=== PATIENT | female | born 1950 | race African-American/Black ===

== ENCOUNTER 2016-11-23 23:13 | Inpatient (IN) ==
[2016-11-23] MEDS ORDERED: Ondansetron 4 MG/2 ML VIAL IVP ONE (23:24)
[2016-11-23 23:46] LABS: Basophils # 0.1 K/mcL (0.0-0.2); Basophils % 0.3 %; Eosinophils % 0.1 %; Hematocrit 42.8 % (35.3-44.9); Immature Granulocytes % 0.5 % (0-4); Lymphocytes # 2.5 K/mcL (0.6-4.6); Lymphocytes % 16.5 %; Mean Corpuscular HGB Conc 32.7 g/dL (31.6-35.5); Mean Corpuscular Hemoglobin 24.9 pg (28.0-33.3); Mean Platelet Volume 9.6 fL (9.4-12.4); Monocytes # 0.9 K/mcL (0.0-1.3); Monocytes % 5.8 %; Neutrophils # 11.4 K/mcL (1.6-8.9); Platelet Count 460 K/mcL (140-400); Red Blood Count 5.63 M/mcL (3.82-4.97); Red Cell Distribution Width 19.4 % (11.5-14.5); Segmented Neutrophils % 76.8 %
[2016-11-23] MEDS ORDERED: *HR* Morphine 2 MG/ML SYRINGE IVP ONE (23:53)
[2016-11-23] MEDS ORDERED: 0.9 % Sodium Chloride 1,000 ML IVC ONE (23:53)
[2016-11-24 00:18] LABS: Albumin 3.2 g/dL (3.5-5.0); Albumin/Globulin Ratio 0.5 (1.1-2.2); Alkaline Phosphatase 84 Units/L (38-126); Aspartate Amino Transferase 15 Units/L (5-34); BUN/Creatinine Ratio 11 (6-26); Bilirubin,Direct 0.2 mg/dL (0.0-0.5); Bilirubin,Indirect 0.3 mg/dL (0.0-1.2); Bilirubin,Total 0.5 mg/dL (0.2-1.2); Blood Urea Nitrogen 27 mg/dL (7-20); Calcium 10.1 mg/dL (8.6-10.8); Carbon Dioxide 21 mEq/L (19-29); Chloride 105 mEq/L (98-109); Globulin 7.1 g/dL (2.4-3.5); Glucose 121 mg/dL (70-99); Lipase 133 Units/L (8-78); Osmolality,Calculated 294 (280-300); Potassium 4.3 mEq/L (3.5-4.5); Sodium 139 mEq/L (136-145); Total Protein 10.3 g/dL (6.0-8.3); eGFR For African Americans 24 (> 60); eGFR For Non-African Americans 19 (> 60)
[2016-11-24 00:19] LABS: Alanine Aminotransferase < 6 Units/L (0-55)
--- NOTE | 2016-11-24 00:24 | Emergency Department Note ---
Disposition Clinical Impression: Elevated lipase, Nausea vomiting and diarrhea Abdominal pain Qualifiers: Abdominal location: generalized Qualified Code(s): R10.84 - Generalized abdominal pain Disposition: Admitted As Inpatient Condition: Good Time of Disposition: 01:54 Abdominal Pain HPI - General Chief Complaint: ED Abdominal Pain Stated Complaint: n/v and abd pain Time Seen by Provider: 11/23/16 23:24 Source: patient Nursing Notes Reviewed: Yes Vital Signs Reviewed: Yes - History of Present Illness Pt Subjective Complaint: abdominal pain Onset (ago): day(s) (3) Consistency: constant Location: diffuse Pain Scale: 6 Radiation: none Migration to: no migration Improves with: nothing Worsens with: nothing Associated symptoms: Reports: nausea, vomiting, diarrhea Treatments prior to arrival: none - Related Data Allergies Allergy/AdvReac Type Severity Reaction Status Date / Time white fish Allergy Rash Uncoded 11/23/16 23:21 All systems ED: reviewed and negative except as stated. Constitutional: Denies: fever, chills Eyes: Denies: eye discharge ENT ED: Denies: throat pain Cardiovascular: Denies: palpitations Respiratory: Denies: dyspnea Gastrointestinal: Reports: as per HPI Genitourinary: Denies: dysuria Musculoskeletal: Denies: back pain, neck pain Integumentary: Denies: rash Neurological: Denies: headache, weakness, numbness, paresthesias Psychiatric: Denies: anxiety Endocrine: Denies: fatigue Hematological/Lymphatic: Denies: easy bleeding Allergic/Immunologic: Denies: facial swelling Abdominal Pain PMH - Past Medical History Medical history: Reports: diabetes, hypertension Female Surgical History: Reports: no surgical history Psychiatric history: Reports: depression - Social History Smoking status: Current some day smoker Alcohol use: Reports: occasionally Drug use: Reports: none Physical Exam - General Limitations: no limitations General appearance: alert, in no apparent distress - Head Head exam: normocephalic - Eye Eye exam: Present: EOMI. Absent: conjunctival injection - ENT ENT exam: mucous membranes moist - Neck Neck exam: Present: full ROM - Chest Chest inspection: Present: symmetric chest wall rise - Respiratory Respiratory exam: Present: normal lung sounds bilaterally. Absent: respiratory distress - Cardiovascular Cardiovascular exam: Present: regular rate, normal rhythm - Abdominal Exam Abdominal exam: Present: soft, tenderness Abdominal tenderness: Present: diffuse - Extremities Exam Extremities exam: Present: normal inspection, full ROM, normal capillary refill - Back Exam Back exam: Present: full ROM - Neurological Exam Neurological exam: Present: alert - Psychiatric Psychiatric exam: Present: normal affect, normal mood - Skin Skin exam: Present: warm, dry, intact, normal color. Absent: rash, cyanosis, diaphoresis Course Course Narrative: Patient presents with three-day history of abdominal pain nausea vomiting and diarrhea. She mentioned she is from out of town and has been visiting family. She denies any fever, chest pain, shortness of breath. She describes her pain as diffuse. She has noticed blood in her vomit, denies any bloody stools. Analgesics ordered. Work up initiated. - Reevaluation(s) Reevaluation #1: Patient has elevated white blood cell count, lipase, and abdominal pain. Discussed patient with Dr. Noriega who agreed for CT. Time: 01:50 Reevaluation #2: Patient had some improvement of her pain after Dilaudid. Patient has kidney disease and elevated lipase however we have no measurement of her baseline since she is from out of town. She also has an elevated white blood cell count and she reports vomiting up blood. Discussed with Dr. Noriega who also had face time with palpation. Will recommend admission to hospitalist. Time: 01:54 Reevaluation #3: Patient discussed with and accepted by hospitalist, Dr. Simon. Time: 02:00 Vital Signs Temperature 97.9 F 11/23/16 23:16 Pulse Rate 78 11/23/16 23:16 Respiratory Rate 20 11/23/16 23:16 Blood Pressure 171/105 11/23/16 23:16 O2 Sat by Pulse Oximetry 97 11/23/16 23:16 Temperature 97.9 F 11/23/16 23:16 Pulse Rate 72 11/24/16 01:26 Respiratory Rate 16 11/24/16 02:27 Blood Pressure 166/85 11/24/16 02:27 O2 Sat by Pulse Oximetry 96 11/24/16 01:26 Oxygen Delivery Oxygen Delivery Room Air Abdominal Pain - MDM Narrative Medical decision making narrative: Abdomen/Pelvis CT 11/24/16 00:31 IMPRESSION: 1. Cholelithiasis without scan evidence for acute cholecystitis. 2. Left renal atrophy. Peripheral increased attenuation could represent a very small perinephric hematoma or prior episode of renal cortical necrosis. If the patient has prior outside studies comparison would be beneficial. D/ / Charlie Gutierrez MD / Charlie Gutierrez MD Interpreting Provider: Charlie Gutierrez MD Lab Results 11/23/16 11/23/16 11/23/16 Range/Units 23:25 23:25 23:25 WBC 14.9 H (4.3-11.1) K/mcL RBC 5.63 H (3.82-4.97) M/mcL Hgb 14.0 (11.5-15.4) g/dL Hct 42.8 (35.3-44.9) % MCV 76.0 L (83.0-100.0) fL MCH 24.9 L (28.0-33.3) pg MCHC 32.7 (31.6-35.5) g/dL RDW 19.4 H (11.5-14.5) % Plt Count 460 H (140-400) K/mcL MPV 9.6 (9.4-12.4) fL Immature Gran % 0.5 (0-4) % Seg Neutrophils % 76.8 % Lymphocytes % 16.5 % Monocytes % 5.8 % Eosinophils % 0.1 % Basophils % 0.3 % Neutrophils # 11.4 H (1.6-8.9) K/mcL Lymphocytes # 2.5 (0.6-4.6) K/mcL Monocytes # 0.9 (0.0-1.3) K/mcL Eosinophils # 0.0 (0.0-0.6) K/mcL Basophils # 0.1 (0.0-0.2) K/mcL Sodium 139 (136-145) mEq/L Potassium 4.3 (3.5-4.5) mEq/L Chloride 105 (98-109) mEq/L Carbon Dioxide 21 (19-29) mEq/L BUN 27 H (7-20) mg/dL Creatinine 2.49 H (0.57-1.11) mg/dL Est GFR ( Amer) 24 L (> 60) Est GFR (Non-Af Amer) 19 L (> 60) BUN/Creatinine Ratio 11 (6-26) Glucose 121 H (70-99) mg/dL Calculated Osmolality 294 (280-300) Lactic Acid (0.5-2.2) mmol/L Calcium 10.1 (8.6-10.8) mg/dL Total Bilirubin 0.5 (0.2-1.2) mg/dL Direct Bilirubin 0.2 (0.0-0.5) mg/dL Indirect Bilirubin 0.3 (0.0-1.2) mg/dL AST 15 (5-34) Units/L ALT < 6 (0-55) Units/L Alkaline Phosphatase 84 (38-126) Units/L Troponin I 0.01 (0-0.03) ng/mL Serum Total Protein 10.3 H (6.0-8.3) g/dL Albumin 3.2 L (3.5-5.0) g/dL Globulin 7.1 H (2.4-3.5) g/dL Albumin/Globulin Ratio 0.5 L (1.1-2.2) Lipase 133 H (8-78) Units/L /15/17 Range/Units 01:16 WBC (4.3-11.1) K/mcL RBC (3.82-4.97) M/mcL Hgb (11.5-15.4) g/dL Hct (35.3-44.9) % MCV (83.0-100.0) fL MCH (28.0-33.3) pg MCHC (31.6-35.5) g/dL RDW (11.5-14.5) % Plt Count (140-400) K/mcL MPV (9.4-12.4) fL Immature Gran % (0-4) % Seg Neutrophils % % Lymphocytes % % Monocytes % % Eosinophils % % Basophils % % Neutrophils # (1.6-8.9) K/mcL Lymphocytes # (0.6-4.6) K/mcL Monocytes # (0.0-1.3) K/mcL Eosinophils # (0.0-0.6) K/mcL Basophils # (0.0-0.2) K/mcL Sodium (136-145) mEq/L Potassium (3.5-4.5) mEq/L Chloride (98-109) mEq/L Carbon Dioxide (19-29) mEq/L BUN (7-20) mg/dL Creatinine (0.57-1.11) mg/dL Est GFR ( Amer) (> 60) Est GFR (Non-Af Amer) (> 60) BUN/Creatinine Ratio (6-26) Glucose (70-99) mg/dL Calculated Osmolality (280-300) Lactic Acid 0.7 (0.5-2.2) mmol/L Calcium (8.6-10.8) mg/dL Total Bilirubin (0.2-1.2) mg/dL Direct Bilirubin (0.0-0.5) mg/dL Indirect Bilirubin (0.0-1.2) mg/dL AST (5-34) Units/L ALT (0-55) Units/L Alkaline Phosphatase (38-126) Units/L Troponin I (0-0.03) ng/mL Serum Total Protein (6.0-8.3) g/dL Albumin (3.5-5.0) g/dL Globulin (2.4-3.5) g/dL Albumin/Globulin Ratio (1.1-2.2) Lipase (8-78) Units/L - Lab Data Lab results reviewed: Yes I reviewed the patient's lab results. Result diagrams: 11/23/16 23:25 11/23/16 23:25 Lab Results 11/23/16 11/23/16 11/23/16 Range/Units 23:25 23:25 23:25 WBC 14.9 H (4.3-11.1) K/mcL RBC 5.63 H (3.82-4.97) M/mcL Hgb 14.0 (11.5-15.4) g/dL Hct 42.8 (35.3-44.9) % MCV 76.0 L (83.0-100.0) fL MCH 24.9 L (28.0-33.3) pg MCHC 32.7 (31.6-35.5) g/dL RDW 19.4 H (11.5-14.5) % Plt Count 460 H (140-400) K/mcL MPV 9.6 (9.4-12.4) fL Immature Gran % 0.5 (0-4) % Seg Neutrophils % 76.8 % Lymphocytes % 16.5 % Monocytes % 5.8 % Eosinophils % 0.1 % Basophils % 0.3 % Neutrophils # 11.4 H (1.6-8.9) K/mcL Lymphocytes # 2.5 (0.6-4.6) K/mcL Monocytes # 0.9 (0.0-1.3) K/mcL Eosinophils # 0.0 (0.0-0.6) K/mcL Basophils # 0.1 (0.0-0.2) K/mcL Sodium 139 (136-145) mEq/L Potassium 4.3 (3.5-4.5) mEq/L Chloride 105 (98-109) mEq/L Carbon Dioxide 21 (19-29) mEq/L BUN 27 H (7-20) mg/dL Creatinine 2.49 H (0.57-1.11) mg/dL Est GFR ( Amer) 24 L (> 60) Est GFR (Non-Af Amer) 19 L (> 60) BUN/Creatinine Ratio 11 (6-26) Glucose 121 H (70-99) mg/dL Calculated Osmolality 294 (280-300) Lactic Acid (0.5-2.2) mmol/L Calcium 10.1 (8.6-10.8) mg/dL Total Bilirubin 0.5 (0.2-1.2) mg/dL Direct Bilirubin 0.2 (0.0-0.5) mg/dL Indirect Bilirubin 0.3 (0.0-1.2) mg/dL AST 15 (5-34) Units/L ALT < 6 (0-55) Units/L Alkaline Phosphatase 84 (38-126) Units/L Troponin I 0.01 (0-0.03) ng/mL Serum Total Protein 10.3 H (6.0-8.3) g/dL Albumin 3.2 L (3.5-5.0) g/dL Globulin 7.1 H (2.4-3.5) g/dL Albumin/Globulin Ratio 0.5 L (1.1-2.2) Lipase 133 H (8-78) Units/L Urine Color (Yellow) Urine Clarity (Clear) Urine pH (5.0-8.0) pH Units Ur Specific [place]oster (1.010-1.025) Urine Protein (Neg-Trace) mg/dL Urine Glucose (UA) (Normal) mg/dL Urine Ketones (Negative) mg/dL Urine Blood (Negative) Urine Nitrite (Negative) Urine Bilirubin (Negative) Urine Urobilinogen (Normal) mg/dL Ur Leukocyte Esterase (Negative) Urine Microscopic RBC (0-3) per hpf Urine Microscopic WBC (0-3) per hpf Ur Squamous Epith Cells (None-Few) per lpf Urine Bacteria (None-Few) per hpf Hyaline Casts (None-Few) per lpf Ur Culture Indicated? (NO) 11/24/16 11/24/16 Range/Units 01:16 01:38 WBC (4.3-11.1) K/mcL RBC (3.82-4.97) M/mcL Hgb (11.5-15.4) g/dL Hct (35.3-44.9) % MCV (83.0-100.0) fL MCH (28.0-33.3) pg MCHC (31.6-35.5) g/dL RDW (11.5-14.5) % Plt Count (140-400) K/mcL MPV (9.4-12.4) fL Immature Gran % (0-4) % Seg Neutrophils % % Lymphocytes % % Monocytes % % Eosinophils % % Basophils % % Neutrophils # (1.6-8.9) K/mcL Lymphocytes # (0.6-4.6) K/mcL Monocytes # (0.0-1.3) K/mcL Eosinophils # (0.0-0.6) K/mcL Basophils # (0.0-0.2) K/mcL Sodium (136-145) mEq/L Potassium (3.5-4.5) mEq/L Chloride (98-109) mEq/L Carbon Dioxide (19-29) mEq/L BUN (7-20) mg/dL Creatinine (0.57-1.11) mg/dL Est GFR ( Amer) (> 60) Est GFR (Non-Af Amer) (> 60) BUN/Creatinine Ratio (6-26) Glucose (70-99) mg/dL Calculated Osmolality (280-300) Lactic Acid 0.7 (0.5-2.2) mmol/L Calcium (8.6-10.8) mg/dL Total Bilirubin (0.2-1.2) mg/dL Direct Bilirubin (0.0-0.5) mg/dL Indirect Bilirubin (0.0-1.2) mg/dL AST (5-34) Units/L ALT (0-55) Units/L Alkaline Phosphatase (38-126) Units/L Troponin I (0-0.03) ng/mL Serum Total Protein (6.0-8.3) g/dL Albumin (3.5-5.0) g/dL Globulin (2.4-3.5) g/dL Albumin/Globulin Ratio (1.1-2.2) Lipase (8-78) Units/L Urine Color Yellow (Yellow) Urine Clarity Cloudy A (Clear) Urine pH 6.5 (5.0-8.0) pH Units Ur Specific [place]oster 1.023 (1.010-1.025) Urine Protein >=300 H (Neg-Trace) mg/dL Urine Glucose (UA) 100 H (Normal) mg/dL Urine Ketones Negative (Negative) mg/dL Urine Blood Small H (Negative) Urine Nitrite Negative (Negative) Urine Bilirubin Negative (Negative) Urine Urobilinogen Normal (Normal) mg/dL Ur Leukocyte Esterase Moderate H (Negative) Urine Microscopic RBC 3-5 H (0-3) per hpf Urine Microscopic WBC 50-100 H (0-3) per hpf Ur Squamous Epith Cells Many H (None-Few) per lpf Urine Bacteria None Seen (None-Few) per hpf Hyaline Casts Few (None-Few) per lpf Ur Culture Indicated? YES A (NO) - Radiology Data Radiology results reviewed: Yes I reviewed the patient's radiology results. Attestation Statement - Attestation Attestation: I, Chung Noriega MD, personally evaluated this patient and discussed their management with the midlevel provicer, PAC/FINISHING TECHNICIAN. I reviewed the midlevel provider 's note and agree with the documented findings, medical decision making, and plan of care. 66-year-old female presents to the emergency department with a 2 day history of nausea and vomiting and diarrhea. Some mild diffuse abdominal pain. Patient states that she has vomited 3 times today but there was a moderate amount of blood in the emesis. No coffee ground emesis. She has had green watery diarrhea with no melena or hematochezia. No fever. Patient is from out of town. She states that she does have a known history of kidney problems and pancreas problems. No history of cirrhosis or hepatitis or liver problems. No history of esophageal varices. No blood thinners. On examination patient is a well-developed well-nourished elderly female in no acute distress. She is alert and oriented 3. There is no diaphoresis. Chest is nontender to palpation. Breath sounds are clear and equal bilaterally. Heart regular rate and rhythm. Abdomen is soft with mild diffuse tenderness and moderate epigastric tenderness. No guarding or rebound tenderness. No CVA tenderness. No pedal edema. Labs reviewed. WBC 14.9. Creatinine 2.49. Lipase 133. No comparison values as patient is from out of town. Lactic acid normal. CT scan of the abdomen and pelvis shows: Cholelithiasis without scan evidence for acute cholecystitis. Left renal atrophy. Peripheral increased attenuation could represent a very small perinephric hematoma or prior episode of renal cortical necrosis. The hospitalist, Dr. Simon, was consulted and accepted admission of the patient.
[2016-11-24] MEDS ORDERED: *HR* HYDROmorphone (PF) 1 MG/ML SYRINGE IVP ONE (01:07)
[2016-11-24 02:09] LABS: Bilirubin,Urine Negative (Negative); Blood,Urine Small (Negative); Clarity,Urine Cloudy (Clear); Color,Urine Yellow (Yellow); Glucose,Urine (UA) 100 mg/dL (Normal); Ketones,Urine Negative (Negative); Leukocyte Esterase,Urine Moderate (Negative); Nitrite,Urine Negative (Negative); PH,Urine 6.5 pH Units (5.0-8.0); Protein,Urine >=300 mg/dL (Neg-Trace); Specific Gravity,Urine 1.023 (1.010-1.025); Urobilinogen,Urine Normal (Normal)
[2016-11-24 02:13] LABS: Bacteria,Urine None Seen per hpf (None-Few); Hyaline Casts,Urine Few per lpf (None-Few); Squamous Epithelial Cell,Urine Many per lpf (None-Few); WBC,Urine 50-100 per hpf (0-3)
[2016-11-24] MEDS ORDERED: Ipratropium/Albuterol Neb 3 ML IH ONE (02:18)
[2016-11-24] MEDS ORDERED: Ondansetron 4 MG/2 ML VIAL IVP PRN (03:28)
[2016-11-24] MEDS ORDERED: Naloxone 0.4 MG/ML INJ IVP PRN (03:28)
[2016-11-24] MEDS ORDERED: Acetaminophen 325 MG TABLET PO PRN (03:28)
[2016-11-24] MEDS ORDERED: Ringers Solution, Lactated 1,000 ML IVC SCH (03:30)
[2016-11-24] MEDS ORDERED: Albuterol 2.5 MG/3 ML NEBULIZER IH PRN (03:30)
--- NOTE | 2016-11-24 03:39 | Internal Med History&Physical ---
Date of Encounter: 11/24/16 Time of Encounter: 03:36 Assessment and Plan (1) Bilateral pneumonia Current visit: Yes Status: Acute CT abdomen showed bilateral atelectasis at the lungs. Considering three-day history of nausea and vomiting with elevated white count and hypoxemia with patient needing nasal oxygen, we will cover her with IV Zosyn and obtain blood cultures 2. A follow-up chest x-ray might be helpful to see if atelectasis resolve and in such case pneumonia diagnosis cannot be ruled out. Qualifiers: Pneumonia type: due to unspecified organism Lung location: lower lobe of lung Qualified Code(s): J18.9 - Pneumonia, unspecified organism (2) UTI (urinary tract infection) Current visit: Yes Status: Acute UA is positive for leukocytes however there are some epithelial cells also present. Urine culture is pending and patient is covered with IV Zosyn. As noted above she is presented with leukocytosis however they could be several other reasons for that including abdominal pain a possible pneumonia. Qualifiers: Urinary tract infection type: site unspecified Hematuria presence: without hematuria Qualified Code(s): N39.0 - Urinary tract infection, site not specified (3) Acute kidney injury Current visit: Yes Status: Acute Creatinine elevated and we do not know if this is an acute finding versus chronic kidney disease. Patient says she is known to have some kidney issues. CT abdomen does not show any obstruction however shows atrophic left kidney with a concern that he might have hematoma. Need to be watched closely and needs serial hemoglobin check on daily basis. (4) Hematemesis Current visit: Yes Status: Acute Patient has been having 3 days of nausea vomiting and has noted some blood in her vomitus however denies any edson bleeding. This could be Kelly-Brantley tear. I will keep her on IV fluid and IV Protonix and nothing by mouth. If hemoglobin drops or bleeding recurs she might need EGD. Qualifiers: Nausea presence: with nausea Qualified Code(s): K92.0 - Hematemesis (5) Abdominal pain Current visit: Yes Status: Acute Presented with 3 day history of abdominal pain nausea vomiting diarrhea. Lipase mildly elevated amylase was not checked. CT abdomen did not show any abnormalities of kidney however did show some non-obstructing gallbladder stones. We will watch her closely and cover her with IV antibiotic and IV fluids and repeat amylase and lipase and LFTs. Qualifiers: Abdominal location: unspecified location Qualified Code(s): R10.9 - Unspecified abdominal pain (6) Hypertension Current visit: Yes Status: Acute Blood pressure elevated not sure if it is due to acute stress or she has underlying hypertension. IV hydralazine when necessary for now Qualifiers: Hypertension type: unspecified Qualified Code(s): I10 - Essential (primary ) hypertension (7) Diabetes Current visit: Yes Status: Acute JJ 4 times a day with sliding scale coverage. She uses insulin Humulin 7030 60 twice a day Qualifiers: Diabetes mellitus type: type 2 Diabetes mellitus complication status: with kidney complications Chronic kidney disease stage: stage 3 (moderate) Qualified Code(s): E11.22 - Type 2 diabetes mellitus with diabetic chronic kidney disease; N18.3 - Chronic kidney disease, stage 3 (moderate); N18.3 - Chronic kidney disease, stage 3 (moderate); Z79.4 - terminal carman (current) use of insulin; Z79.4 - USP (current) use of insulin; Z79.4 - terminal carman (current ) use of insulin; Z79.4 - terminal carman (current) use of insulin Internal Medicine - H&P: HPI Chief complaint: Abdominal pain nausea vomiting diarrhea Admitted From: Home Plans for Post Hospital Care: Home History of present illness: Ms. Diop is a 66 year old female has medical history significant for diabetes hypertension dyslipidemia chronic kidney disease. She and is traveling from [place]. She has been here for 3 days and has developed a nonproductive cough and lower abdominal pain nausea vomiting diarrhea. Abdominal pain is pretty much in the lower half without any fever or chills or any particular pattern of radiation. No blood in urine or stools. No chest pain headache dizziness syncope or any other symptoms otherwise. She has been constantly complaining of abdominal pain but not only her physical examination is quite unremarkable but also she seemed quite comfortable and when I walk in her room she was sleeping comfortably. In primary care has told her that she has chronic kidney disease. Past Med Surg Social Fam HX - Past Medical History Medical history: diabetes, hypertension Psychiatric history: depression - Social History Smoking Status: Current some day smoker Packs per day: 3 cigarettes/day Smokeless Tobacco Status: No Alcohol use: occasionally Drug use: none - Family History Mother Hx Family Cardiac Disorders: No Hx Family Cancer: Yes (Lung) Father Hx Family Cardiac Disorders: (HTN) Hx Family Genitourinary Disorders: Yes (Kidney disease) Hx Family Endocrine Disorder: (DM) Internal Medicine - H&P: Meds 3 Allergy/AdvReac Type Severity Reaction Status Date / Time white fish Allergy Rash Uncoded 11/23/16 23:21 All Systems PM: A 10-system review of systems was performed and is negative for pertinent findings except as documented above in the HPI. - Constitutional Constitutional: no chills, no fever(s), no night sweats - EENT Eyes: no change in vision, no discharge, no pain, no photophobia Ears: no ear discharge, no ear pain, no tinnitus Nose, mouth and throat: no dysphagia, no nasal discharge, no neck pain, no sore throat - Cardiovascular Cardiovascular ROS IM: no chest pain, no diaphoresis, no dyspnea, no lightheadedness, no palpitations, no syncope - Respiratory Respiratory: no cough, no dyspnea, no wheezing, no excessive phlegm production - Gastrointestinal Gastrointestinal: abdominal pain, diarrhea, nausea, vomiting, no hematemesis, no hematochezia, no melena - Genitourinary Genitourinary: no change in urinary stream, no dysuria, no flank pain, no hematuria - Musculoskeletal Musculoskeletal ROS IM: no numbness, no tingling - Integumentary Integumentary IM: no rash, no unusual bruising - Neurological Neurological ROS: no confusion, no convulsions, no focal weakness, no numbness, no tingling, no tremor(s) - Hematologic/Lymphatic Hematologic/Lymphatic: no easy bruising - Constitutional Vitals: Temp Pulse Resp BP Pulse Ox 97.9 F 72 16 166/85 96 11/23/16 23:16 11/24/16 01:26 11/24/16 02:31 11/24/16 02:27 11/24/16 02:31 General appearance: Present: A&O X 3, no acute distress, answers questions appropriately - Head Head exam: Present: atraumatic, normocephalic - Eye Eye exam: Present: PERRL, conjuntiva pink, sclera anicteric Pupils: Present: PERRL - Neck Neck exam general surgery: Present: supple, trachea midline. Absent: lymphadenopathy - Respiratory Respiratory exam: Present: CTAB. Absent: accessory muscle use, rales, rhonchi, wheezes - Cardiovascular Cardiovascular exam: Present: RRR, +S1, +S2. Absent: diastolic murmur, gallop, rubs, systolic murmur - GI/Abdominal GI/Abdominal exam: Present: normal bowel sounds, soft, tenderness, no peritoneal signs. Absent: distended Additional comments: Mild tenderness in lower abdomen which is overall very soft organomegaly. No significant pain in the right or left upper quadrants no Rdz's sign - Extremities Exam Extremities exam: Present: warm, radial pulses palpable and symmetrical. Absent : calf tenderness, cyanotic, pedal edema - Neurological Exam Neurological exam: Present: CN II-XII intact, oriented X3, no focal deficits. Absent: pronater drift, facial droop, speech deficit - Skin Skin exam: Present: dry, intact Internal Med - H&P Results - Labs CBC & Chem 7: 11/24/16 04:15 11/24/16 04:15
[2016-11-24] MEDS: *HR* Morphine 2 MG/ML SYRINGE IVP PRN ×4 (04:37→21:14)
[2016-11-24 05:34] LABS: Basophils # 0.1 K/mcL (0.0-0.2); Basophils % 0.4 %; Eosinophils % 0.1 %; Hematocrit 38.4 % (35.3-44.9); Immature Granulocytes % 0.4 % (0-4); Lymphocytes # 2.8 K/mcL (0.6-4.6); Lymphocytes % 19.5 %; Mean Corpuscular HGB Conc 32.3 g/dL (31.6-35.5); Mean Corpuscular Hemoglobin 25.1 pg (28.0-33.3); Mean Corpuscular Volume 77.7 fL (83.0-100.0); Mean Platelet Volume 9.8 fL (9.4-12.4); Monocytes # 0.9 K/mcL (0.0-1.3); Monocytes % 6.1 %; Neutrophils # 10.4 K/mcL (1.6-8.9); Platelet Count 412 K/mcL (140-400); Red Blood Count 4.94 M/mcL (3.82-4.97); Red Cell Distribution Width 18.6 % (11.5-14.5); Segmented Neutrophils % 73.5 %
[2016-11-24 05:39] LABS: Hemoglobin 12.4 g/dL (11.5-15.4)
[2016-11-24 05:46] LABS: Albumin/Globulin Ratio 0.5 (1.1-2.2); Bilirubin,Total 0.4 mg/dL (0.2-1.2); Calcium 9.4 mg/dL (8.6-10.8); Chol/HDL Ratio 2.8 (0-4.9); Globulin 6.4 g/dL (2.4-3.5); Magnesium 2.2 mg/dL (1.6-2.6); Potassium 4.1 mEq/L (3.5-4.5); Total Protein 9.4 g/dL (6.0-8.3)
[2016-11-24] MEDS: Piperacillin/Tazobactam 3.375 GM in D5% in Water (Mini-Bag+) 100 ML IVPB SCH ×3 (08:31→23:38)
[2016-11-24] MEDS: Pantoprazole 40 MG VIAL IVP SCH (08:32)
[2016-11-24] MEDS ORDERED: Dextrose Gel 15 GM PO PRN ×2 (12:45)
[2016-11-24] MEDS ORDERED: D5% in Water 1,000 ML IVC PRN (12:45)
[2016-11-24] MEDS ORDERED: *HR* Dextrose 50 % in Water (Syg) 50 ML SYRINGE IVP PRN (12:45)
[2016-11-24] MEDS ORDERED: hydrOXYzine pamoate 25 MG CAPSULE PO PRN ×2 (13:35→14:51)
[2016-11-24] MEDS: 0.9 % Sodium Chloride 1,000 ML IVC SCH ×2 (13:42→23:33)
[2016-11-24] MEDS ORDERED: hydrOXYzine pamoate 25 MG CAPSULE PO ONE (14:26)
[2016-11-24] MEDS: Insulin LISPRO 300 UNITS/3 ML VIAL SQ SCH (17:06)
[2016-11-24] MEDS ORDERED: *HR* Acetaminophen w/Cod 300-30 mg 1 TAB TABLET PO PRN (17:53)
[2016-11-24] MEDS ORDERED: Insulin NPH/REG 70/30 100 UNIT/ML (x5UNIT) SQ SCH (21:00)
[2016-11-24] MEDS ORDERED: Insulin LISPRO 300 UNITS/3 ML VIAL SQ SCH (21:00)
[2016-11-24] MEDS: ALPRAZolam 1 MG TABLET PO SCH (21:13)
[2016-11-24] MEDS: Ipratropium 1 PUFF INHALER IH SCH (23:16)
[2016-11-25] MEDS: Ipratropium 1 PUFF INHALER IH SCH ×2 (04:11→10:26)
[2016-11-25 05:18] LABS: Amylase 155 Units/L (25-125); Lipase 141 Units/L (8-78)
[2016-11-25] MEDS: *HR* Morphine 2 MG/ML SYRINGE IVP PRN (06:19)
[2016-11-25] MEDS: Insulin LISPRO 300 UNITS/3 ML VIAL SQ SCH ×2 (07:48→12:00)
[2016-11-25] MEDS: Piperacillin/Tazobactam 3.375 GM in D5% in Water (Mini-Bag+) 100 ML IVPB SCH (08:12)
[2016-11-25] MEDS: Pantoprazole 40 MG VIAL IVP SCH (08:12)
[2016-11-25] MEDS ORDERED: Insulin NPH/REG 70/30 100 UNIT/ML (x5UNIT) SQ SCH (09:00)
[2016-11-25] MEDS ORDERED: Aspirin Enteric Coated 81 MG Tablet PO SCH (09:00)
[2016-11-25] MEDS ORDERED: cloNIDine HCl 0.1 MG TABLET PO SCH (09:00)
[2016-11-25 10:25] LABS: Basophils # 0.1 K/mcL (0.0-0.2); Basophils % 0.5 %; Eosinophils # 0.2 K/mcL (0.0-0.6); Eosinophils % 1.6 %; Hematocrit 35.1 % (35.3-44.9); Hemoglobin 11.3 g/dL (11.5-15.4); Immature Granulocytes % 0.3 % (0-4); Lymphocytes # 2.6 K/mcL (0.6-4.6); Lymphocytes % 22.4 %; Mean Corpuscular HGB Conc 32.2 g/dL (31.6-35.5); Mean Corpuscular Hemoglobin 25.1 pg (28.0-33.3); Mean Platelet Volume 9.4 fL (9.4-12.4); Monocytes # 0.8 K/mcL (0.0-1.3); Monocytes % 7.4 %; Neutrophils # 7.8 K/mcL (1.6-8.9); Platelet Count 325 K/mcL (140-400); Red Cell Distribution Width 18.6 % (11.5-14.5); Segmented Neutrophils % 67.8 %
[2016-11-25 10:41] LABS: Albumin 2.6 g/dL (3.5-5.0); Albumin/Globulin Ratio 0.5 (1.1-2.2); Bilirubin,Total 0.3 mg/dL (0.2-1.2); Calcium 8.8 mg/dL (8.6-10.8); Globulin 5.4 g/dL (2.4-3.5); Magnesium 1.6 mg/dL (1.6-2.6); Potassium 4.9 mEq/L (3.5-4.5)
[2016-11-25] MEDS: ALPRAZolam 1 MG TABLET PO SCH (11:42)
[2016-11-25] MEDS: 0.9 % Sodium Chloride 1,000 ML IVC SCH (13:36)
[2016-11-25 15:14] VITALS: BP 192/83
--- NOTE | 2016-11-25 15:33 | Discharge Summary ---
Date of Encounter: 11/25/16 Time of Encounter: 13:30 - Discharge Diagnosis (1) Cholelithiasis Priority: Primary Status: Acute Qualifiers: Cholelithiasis location: gallbladder Cholecystitis presence: with cholecystitis Cholecystitis acuity: acute Biliary obstruction: without biliary obstruction Qualified Code(s): K80.00 - Calculus of gallbladder with acute cholecystitis without obstruction (2) Abdominal pain Priority: Primary Status: Acute Qualifiers: Abdominal location: unspecified location Qualified Code(s): R10.9 - Unspecified abdominal pain (3) Elevated lipase Priority: Primary Status: Acute (4) Bilateral pneumonia Priority: Secondary Status: Acute Qualifiers: Pneumonia type: due to unspecified organism Lung location: lower lobe of lung Qualified Code(s): J18.9 - Pneumonia, unspecified organism (5) UTI (urinary tract infection) Priority: Secondary Status: Acute Qualifiers: Urinary tract infection type: site unspecified Hematuria presence: without hematuria Qualified Code(s): N39.0 - Urinary tract infection, site not specified (6) Acute kidney injury Priority: Secondary Status: Acute (7) Hypertension Priority: Secondary Status: Acute Qualifiers: Hypertension type: unspecified Qualified Code(s): I10 - Essential (primary ) hypertension - Discharge Medications Prescriptions: Levofloxacin [Levaquin] 750 mg PO Q48H #5 tablet metroNIDAZOLE [Flagyl] 500 mg PO TID #30 tablet Home Medications: ALPRAZolam [Xanax 1 MG Tablet] 1 mg PO BID 11/24/16 [History] Acetaminophen w/Cod 300-30 mg [Tylenol w/Codeine #3] 1 tab PO Q6H PRN 11/24/16 [ History] Albuterol Sulfate [Ventolin Hfa] 2 puff IH Q4H PRN 11/24/16 [History] Aspirin [Lo-Dose Aspirin EC] 81 mg PO DAILY 11/24/16 [History] Atorvastatin [Lipitor] 10 mg PO DAILY 11/24/16 [History] Enalapril Maleate [Vasotec] 5 mg PO DAILY 11/24/16 [History] Insulin Aspart Prot/Insuln Asp [Novolog Mix 70-30 Vial] 32 unit SQ HS 11/24/16 [ History] Insulin Aspart Prot/Insuln Asp [Novolog Mix 70-30 Vial] 40 unit SQ QAM 11/24/16 [History] Ipratropium [ATROVENT Inhaler] 2 puff IH QID 11/24/16 [History] cloNIDine HCl [Clonidine HCl] 0.3 mg PO DAILY 11/24/16 [History] Levofloxacin [Levaquin] 750 mg PO Q48H #5 tablet 11/25/16 [Rx] metroNIDAZOLE [Flagyl] 500 mg PO TID #30 tablet 11/25/16 [Rx] Allergies/Adverse Reactions: 3 Allergy/AdvReac Type Severity Reaction Status Date / Time white fish Allergy Rash Uncoded 11/23/16 23:21 Procedures/tests Complete & Pending: Procedures Performed prior 72 hours Category Date Time Status NM hepatobiliary [NM] Stat Exams 11/26/16 06:00 Ordered US abdomen limited [US] Routine Exams 11/25/16 10:30 Completed Date of admission: 11/24/16 03:26 Primary care physician: PCP NONE Consults: 11/25/16 12:27 Consult to Gastroenterology [CONS] Routine Consulting Provider: Gastroenterology [facility] Reason for Consult: cholelithiasis Call Completed: Yes - Patient Status Disposition: Left Against Medical Advice Condition: Good - Discharge Instructions Follow Up With: NONE,PCP [Primary Care Provider] - Hospital course: Ms. Diop is a 66 year old female admitted for abdominal pain likely secondary to cholecystitis. Imaging findings consistent with cholelithiasis and HIDA scan is recommended. Pt reports of being from [place] and states she needs to leave today to take care of her family. I had an extensive discussion about patient's health and the need for further testing and treatment. She understands that she needs to stay in the hospital but states she needs to go back to [place] and see a doctor there. She is adamant about leaving today. All the risks associated with patient's discharge for today were discussed in details, she acknowledged these risks and is wanting to leave AMA ABX scripts are given and pt is advised to seek medical help. pt is leaving AMA today - Time Spent with Patient Total time spent providing and/or coordinating discharge services: Greater than 30 minutes - Constitutional Vitals: Temp Pulse Resp BP Pulse Ox 98.0 F 72 17 192/83 98 11/25/16 15:13 11/25/16 15:13 11/25/16 15:13 11/25/16 15:13 10/16/17 15:13 General appearance: Present: A&O X 3, no acute distress, answers questions appropriately - Head Head exam: Present: atraumatic, normocephalic - Eye Eye exam: Present: conjuntiva pink, sclera anicteric - Respiratory Respiratory exam: Absent: respiratory distress, wheezes - Cardiovascular Cardiovascular exam: Present: RRR, +S1, +S2 - GI/Abdominal GI/Abdominal exam: Present: normal bowel sounds, soft, tenderness (right upper quadrant tenderness). Absent: distended - Extremities Exam Extremities exam: Present: warm, radial pulses palpable and symmetrical. Absent : calf tenderness - Neurological Exam Neurological exam: Present: alert, oriented X3 - VTE Documentation of Mechanical Device: Graduated compression elastic hosiery
== END 2016-11-25 16:20 | disposition left against medical advice (07) | DRG 444 ==
LOC: 3BNU 23:13 → EMEROO 23:13 → 3BNU 11-24 02:59
PROVIDERS: ADMIT Family Medicine; ATTEND Registered Nurse